=== PATIENT | male | born 1970 | race Caucasian/White ===

== ENCOUNTER 2022-07-13 12:42 | Emergency (ER) | payer OTHER, SELFPAY ==
[2022-07-13 12:50] VITALS: BP 137/77; PULSE 72; RESP 16; TEMP 36.9; O2SAT 98
--- NOTE | 2022-07-13 13:10 | ED.ABDPAIN ---
HPI - Abdominal Pain General Chief Complaint: Abdominal Pain Stated Complaint: lower abd pain Time Seen by Provider: 07/13/22 13:10 Source: patient and RN notes reviewed Mode of arrival: ambulatory Limitations: no limitations History of Present Illness HPI narrative: 51 y/o male presented for c/o right lower abdominal pain worsening for one week. Pain radiates to right groin and lower back. Rates 4/10. Pain is constant, sharp. Worse when bending over. Endorses nausea. Denies vomiting, diarrhea, urinary changes, fever or chills. LBM today. Hx kidney stone. Related Data Home Medications Medication Instructions Recorded Confirmed atorvastatin 40 mg tablet mg 07/13/22 esomeprazole magnesium 20 mg 20 mg PO DAILY 07/13/22 07/13/22 capsule,delayed release (Nexium) finasteride 5 mg tablet mg 07/13/22 levocetirizine 5 mg tablet (Xyzal) 5 mg PO DAILY 07/13/22 07/13/22 lisinopril 5 mg tablet mg 07/13/22 metformin 500 mg tablet,extended mg PO 07/13/22 07/13/22 release 24 hr multivitamin tablet 07/13/22 tamsulosin 0.4 mg capsule mg PO 07/13/22 Allergies Allergy/AdvReac Type Severity Reaction Status Date / Time Penicillins Allergy Anaphylactic Verified 07/13/22 13:11 Shock Review of Systems Review of Systems: CONSTITUTIONAL: Denies body aches, fever, chills CARDIOVASCULAR: Denies chest pain, palpitations, or edema. RESPIRATORY: Denies cough or dyspnea. GASTROINTESTINAL: Endorses abdominal pain, nausea, Denies vomiting, diarrhea, melena GENITOURINARY: Denies dysuria, hematuria, or CVA tenderness. SKIN: Denies rash, itching, or wounds. MUSCULOSKELETAL: Denies back pain, joint pain, or myalgia. NEUROLOGIC: Denies headache, numbness, tingling, or weakness. All systems reviewed & are unremarkable except as noted in HPI and below PMFSH Comments At time of signature, I have reviewed and agree with nursing past medical, surgical, social and family history unless otherwise noted. Please see nursing chart for further information. There is no relevant family history pertinent to the presenting complaint Exam Narrative: GENERAL: Well-appearing EYES: EOMI. Conjunctivae normal. ENT: Mucous membranes pink and moist. CHEST: No respiratory distress. Clear to auscultation. HEART: Regular rate and rhythm. ABDOMEN: abd soft, nondistended, normal active bowel sounds. Tender abdomen RLQ and right groin SKIN: Warm, dry, no rash. Capillary refill normal. Normal skin turgor. NEURO: No focal deficits. Alert and oriented x3. Course Course Emergency Course: Patient is aware of diagnosis, understands and agrees to treatment plan. Anticipatory guidance given. Portions of this record may have been created with voice recognition software Level of Care: Express Care Visit Vital Signs Vital signs: Vital Signs Temperature 98.5 F 07/13/22 12:50 Pulse Rate 72 07/13/22 12:50 Respiratory Rate 16 07/13/22 12:50 Blood Pressure 137/77 07/13/22 12:50 Pulse Oximetry 98 07/13/22 12:50 Oxygen Delivery Room Air 07/13/22 12:50 Temperature 98.5 F 07/13/22 12:50 Pulse Rate 72 07/13/22 12:50 Respiratory Rate 16 07/13/22 12:50 Blood Pressure 137/77 07/13/22 12:50 Pulse Oximetry 98 07/13/22 12:50 Oxygen Delivery Room Air 07/13/22 12:50 Transfer Transfered to: [facility] Transportation: Other (private vehicle) MDM - Abdominal Pain MDM Narrative Medical decision making narrative: Urine negative. Advised transfer to ER for further evaluation of abdominal pain. Differential Diagnosis Differential diagnosis: Likely abdominal pain, acute appendicitis, gastroenteritis and small bowel obstruction Lab Data Labs: Urine Glucose Negative Reference Range: Negative Urine Bilirubin Negative Reference Range: Negative Urine Ketone
== END 2022-07-13 13:30 | disposition short-term general hospital (02) ==
PROVIDERS: Emergency Provider Nurse Practitioner Family
DX: R10.31 Right lower quadrant pain (principal); E78.00 Pure hypercholesterolemia, unspecified; K21.9 Gastro-esophageal reflux disease without esophagitis; E11.9 Type 2 diabetes mellitus without complications; N40.0 Benign prostatic hyperplasia without lower urinary tract symptoms
CPT/HCPCS: 81003; 99212; G0463

== ENCOUNTER 2023-11-29 19:02 | Emergency (ER) | payer OTHER, SELFPAY ==
--- NOTE | 2023-11-29 19:06 | ED.GENADULT ---
HPI - General Adult General Chief complaint: Upper Respiratory Infection Stated complaint: Sore Throat Source: patient, RN notes reviewed and old records reviewed Mode of arrival: ambulatory Limitations: no limitations History of Present Illness HPI narrative: 53-year-old male patient presents to [facility] with complaints of sore throat, fatigue, myalgias that started 3 days ago. Patient states his daughter has strep throat. Patient taking [id number] medications with no relief. MD complaint: sore throat Onset (ago): day(s) (3-4) Severity: moderate Pain Consistency: constant Relieving factors: none Exacerbating factors: none Treatments prior to arrival: NSAID Related Data Home Medications Medication Instructions Recorded Confirmed atorvastatin 40 mg tablet 40 mg PO DAILY 07/13/22 07/13/22 esomeprazole magnesium 20 mg 20 mg PO DAILY 07/13/22 07/13/22 capsule,delayed release (Nexium) finasteride 5 mg tablet 5 mg PO DAILY 07/13/22 07/13/22 levocetirizine 5 mg tablet (Xyzal) 5 mg PO DAILY 07/13/22 07/13/22 lisinopril 5 mg tablet 5 mg PO DAILY 07/13/22 07/13/22 metformin 500 mg tablet,extended 500 mg PO BID 07/13/22 07/13/22 release 24 hr multivitamin 1 tablet PO DAILY 07/13/22 07/13/22 tamsulosin 0.4 mg capsule 0.4 mg PO DAILY 07/13/22 07/13/22 Allergies Allergy/AdvReac Type Severity Reaction Status Date / Time Penicillins Allergy Anaphylactic Verified 07/13/22 13:11 Shock Review of Systems Constitutional: Constitutional: Reports no additional constitutional complaints, Reports body ache(s), Denies chills, Reports fatigue, Reports fever(s) and Denies headache(s) Eyes: Eyes: Reports no additional eye complaints and Denies blurry vision ENT: Reports system reviewed and no additional complaints, except as documented, Denies vertigo, Denies dizziness, Denies ear discharge, Denies otalgia, Denies facial pain, Denies headache(s), Denies nasal congestion, Denies nasal discharge, Denies sinus pain, Denies sinus pressure and Reports sore throat Cardiovascular: Cardiovascular: Reports no additional cardiovascular complaints, Denies chest pain, Denies chest pain at rest, Denies rapid heart rate and Denies dyspnea Respiratory: Respiratory: Reports no additional respiratory complaints, Denies chest congestion, Denies cough, Denies pain on inspiration, Denies pain with cough and Denies dyspnea Gastrointestinal: Gastrointestinal: Denies abdominal pain, Denies diarrhea, Denies nausea and Denies vomiting Integumentary/Breasts: Skin/Breast: Denies rash Neurologic: Reports system reviewed and no additional complaints, except as documented, Denies vertigo, Denies dizziness and Denies headache(s) Endocrine: Endocrine: Denies fatigue PMFSH Comments At the time of my signature, I reviewed and agree with the nursing past medical, surgical, social, and family history. There is no relevant family history pertinent to the patient complaint. Exam Const: General: cooperative, healthy appearing, no acute distress and well nourished Nutritional Appearance: well nourished Orientation/consciousness: patient oriented x3 Limitations: no limitations HENMT: Head: normal to inspection and normocephalic Ears: external ears normal, TM's normal bilaterally, mastoids normal and Abnormal EAC present Face/Nose/Sinus: normal facial exam Face and sinus: normal facial exam Mouth: Yes Normal oral and palatal mucosa present, Yes oropharynx normal and Yes moist mucous membranes Throat: tonsils normal, uvula midline, posterior oropharynx abnormal, no uvular edema and other (lymphoedema) Eyes: General: appearance normal, both eyes and all related structures Sclera: sclerae normal Pupils: Equal, round and reactive pupils present Resp: Effort & Inspection: normal respiratory effort, able to speak in complete sentences, no audible wheezes, no cough, no respiratory distress and no retractions Auscultation: clear to auscultation bilaterally, no crack
[2023-11-29 19:08] VITALS: BP 119/82; PULSE 80; RESP 16; TEMP 36.6; O2SAT 96
== END 2023-11-29 19:28 | disposition home or self-care (01) ==
PROVIDERS: Emergency Provider Registered Nurse
DX: J02.9 Acute pharyngitis, unspecified (principal); E78.00 Pure hypercholesterolemia, unspecified; K21.9 Gastro-esophageal reflux disease without esophagitis; E11.9 Type 2 diabetes mellitus without complications; N40.0 Benign prostatic hyperplasia without lower urinary tract symptoms
CPT/HCPCS: 87081; 87880; 99213; G0463